=== PATIENT | male | born 1965 | race Caucasian/White ===

== ENCOUNTER 2021-08-19 09:28 | Emergency (ER) | payer MEDICAID ==
[~2021-08-19] VITALS: Ht 177.8 cm; Wt 86.2 kg
[2021-08-19 09:28] VITALS: BP_SYST 152
[2021-08-19] MEDS ORDERED: NACL 0.9% 1,000 ML IV ONE (09:45)
[2021-08-19] MEDS ORDERED: ONDANSETRON HCL 4 MG/2 ML VIAL IVP ONE (09:45)
[2021-08-19 10:13] LABS: BASOPHILS # (AUTO) 0.1 K/uL (0.0-0.2); BASOPHILS % (AUTO) 0.4 % (0.0-2.0); EOSINOPHILS % (AUTO) 0.1 % (0.0-4.0); HEMATOCRIT 50.9 % (36-54); HEMOGLOBIN 17.7 g/dL (14.0-18.0); LYMPHOCYTES % (AUTO) 18.9 % (20.5-51.5); MEAN CORPUSCULAR HEMOGLOBIN 32 pg (27-31); MEAN CORPUSCULAR HGB CONC 35 % (32-36); MEAN CORPUSCULAR VOLUME 90 fL (79.0-98.0); MONOCYTES # (AUTO) 2.1 K/uL (0.0-1.0); MONOCYTES % (AUTO) 13.7 % (1.7-9.3); NEUTROPHILS # (AUTO) 10.5 K/uL (1.8-7.7); NEUTROPHILS % (AUTO) 66.9 % (40.0-70.0); PLATELET COUNT (AUTO) 321 K/uL (130-430); RED BLOOD CELL COUNT(AUTO) 5.63 MIL/uL (4.2-6.2); RED CELL DISTRIBUTION WIDTH 13.1 % (9.0-15.0); WHITE BLOOD COUNT (AUTO) 15.6 K/uL (4.8-10.8)
[2021-08-19 10:23] LABS: CREATININE 1.21 mg/dL (0.55-1.30); POTASSIUM 3.4 mmol/L (3.5-5.1)
[2021-08-19 10:27] LABS: C-REACTIVE PROTEIN QUANT 0.4 mg/dL (0-0.5)
[2021-08-19 10:32] LABS: INR 1.1 (0.80-1.20)
[2021-08-19] MEDS ORDERED: ONDA-8 TL (11:12)
[2021-08-19] MEDS ORDERED: HYDR-3917 PO (11:12)
[2021-08-19] MEDS ORDERED: IBUP-1971 PO (11:12)
[2021-08-19 11:53] VITALS: BP_SYST 173
== END 2021-08-19 11:52 | disposition home or self-care (01) ==
LOC: SED 09:28
DX: K80.50 Calculus of bile duct without cholangitis or cholecystitis without obstruction (principal); F12.90 Cannabis use, unspecified, uncomplicated; Z79.899 Other long term (current) drug therapy
CPT/HCPCS: 36415; 74176; 76376; 80053; 82150; 83605; 83690; 84484; 85025; 85610; 85730; 86140; 96361; 96374; 99284; J2405; J7030

== ENCOUNTER 2022-02-10 19:22 | Inpatient (IN) | payer MEDICAID ==
[~2022-02-10] VITALS: Ht 177.8 cm; Wt 91.2 kg
[~2022-02-10 19:22] MED LIST: HYDR-3917 PO; IBUP-1971 PO; ONDA-8 TL
[2022-02-10 19:29] VITALS: BP_SYST 159
--- NOTE | 2022-02-10 19:29 | NUR ---
Patient to ER bed 02 to gown for evaluation. Side rails up. Report given to ADRIANA Palma
--- NOTE | 2022-02-10 19:35 | NUR ---
Pt admits to having difficulty finding words to express himself. No slurred speech noted at this time. Pt noted difficulty at finding words to express himself 2 days ago.
[2022-02-10 20:02] LABS: BASOPHILS # (AUTO) 0.1 K/uL (0.0-0.2); BASOPHILS % (AUTO) 0.8 % (0.0-2.0); EOSINOPHILS # (AUTO) 0.2 K/uL (0.0-0.4); EOSINOPHILS % (AUTO) 2.5 % (0.0-4.0); HEMATOCRIT 39.2 % (36-54); HEMOGLOBIN 13.8 g/dL (14.0-18.0); LYMPHOCYTES # (AUTO) 2.7 K/uL (1.0-5.5); LYMPHOCYTES % (AUTO) 33.3 % (20.5-51.5); MEAN CORPUSCULAR HEMOGLOBIN 32 pg (27-31); MEAN CORPUSCULAR HGB CONC 35 % (32-36); MEAN CORPUSCULAR VOLUME 90 fL (79.0-98.0); MONOCYTES # (AUTO) 0.7 K/uL (0.0-1.0); MONOCYTES % (AUTO) 8.8 % (1.7-9.3); NEUTROPHILS # (AUTO) 4.4 K/uL (1.8-7.7); NEUTROPHILS % (AUTO) 54.6 % (40.0-70.0); PLATELET COUNT (AUTO) 223 K/uL (130-430); RED BLOOD CELL COUNT(AUTO) 4.36 MIL/uL (4.2-6.2); RED CELL DISTRIBUTION WIDTH 14.4 % (9.0-15.0); WHITE BLOOD COUNT (AUTO) 8.1 K/uL (4.8-10.8)
[2022-02-10 20:09] LABS: ANION GAP 6 (5-15); CALCIUM 9.1 mg/dL (8.4-11.0); CHLORIDE 106 mmol/L (98-107); CREATININE 0.94 mg/dL (0.55-1.30); GLUCOSE 100 mg/dL (70-99); POTASSIUM 3.6 mmol/L (3.5-5.1); SODIUM SERUM 139 mmol/L (136-145); UREA NITROGEN, BLOOD 13 mg/dL (8-21)
[2022-02-10 20:10] LABS: GFR AFRICAN AMERICAN 108 mL/min (>90)
[2022-02-10 20:11] LABS: PROTHROMBIN TIME 10.5 SECS (9.5-12.5)
[2022-02-10] MEDS ORDERED: IOHEXOL 350 mgI/mL, 150 ML INFUS..BTL IV ONE (20:12)
[2022-02-10 20:18] LABS: ALANINE AMINOTRANSFERASE 21 U/L (12-78); ALBUMIN 3.3 g/dL (3.4-4.8); ASPARTATE AMINOTRANSFERASE 20 U/L (10-37); TOTAL BILIRUBIN < 0.1 mg/dL (0.0-1.0)
--- NOTE | 2022-02-10 20:55 | NUR ---
Pt off to CTA at this time.
[2022-02-10] MEDS ORDERED: ASPIRIN 325 MG TABLET PO ONE (21:45)
[2022-02-10] MEDS ORDERED: ALBUTEROL SULFATE 0.083% 2.5 MG/3 ML VIAL.NEB INH PRN (22:45)
[2022-02-10] MEDS ORDERED: ACETAMINOPHEN 325 MG TABLET PO PRN (22:45)
--- NOTE | 2022-02-10 23:45 | NUR ---
Patient will be admitted to care of Dr. Egan. Admitted to Tele unit. Will go to room 130-B. Belongings list completed. Complete and up to date summary report printed. SBAR report to be given at bedside with opportunity for questions.
--- NOTE | 2022-02-10 23:55 | NUR ---
ADMIT NOTE Received pt from ER to with a diagnosis of CVA . Admission process initiated. patient oriented to pain management, safety and call light-teach back done.
[2022-02-11] MEDS ORDERED: FLU VACC QS2021-22(6MOS UP)/PF 0.5 ML/SYR SYRINGE I.M. PRN (00:45)
[2022-02-11 01:42] VITALS: BP_SYST 157
[2022-02-11 04:00] VITALS: BP_SYST 153
[2022-02-11 06:41] LABS: BASOPHILS % (AUTO) 0.7 % (0.0-2.0); EOSINOPHILS # (AUTO) 0.1 K/uL (0.0-0.4); EOSINOPHILS % (AUTO) 2.1 % (0.0-4.0); HEMATOCRIT 40.6 % (36-54); LYMPHOCYTES # (AUTO) 2.1 K/uL (1.0-5.5); LYMPHOCYTES % (AUTO) 29.3 % (20.5-51.5); MEAN CORPUSCULAR HEMOGLOBIN 31 pg (27-31); MEAN CORPUSCULAR HGB CONC 35 % (32-36); MEAN CORPUSCULAR VOLUME 91 fL (79.0-98.0); MONOCYTES # (AUTO) 0.6 K/uL (0.0-1.0); MONOCYTES % (AUTO) 7.9 % (1.7-9.3); NEUTROPHILS # (AUTO) 4.2 K/uL (1.8-7.7); PLATELET COUNT (AUTO) 229 K/uL (130-430); RED BLOOD CELL COUNT(AUTO) 4.48 MIL/uL (4.2-6.2); RED CELL DISTRIBUTION WIDTH 14.9 % (9.0-15.0); WHITE BLOOD COUNT (AUTO) 7.1 K/uL (4.8-10.8)
[2022-02-11 06:48] LABS: ALBUMIN 3.3 g/dL (3.4-4.8); CALCIUM 8.8 mg/dL (8.4-11.0); CREATININE 0.7 mg/dL (0.55-1.30); POTASSIUM 3.5 mmol/L (3.5-5.1)
[2022-02-11] MEDS ORDERED: NALOXONE HCL 0.4 MG/ML AMP (NARCAN) IVP PRN ×2 (07:30)
[2022-02-11] MEDS ORDERED: MUPIROCIN 2% TOPICAL OINTMENT 22 GM NS PRN (07:30)
[2022-02-11] MEDS ORDERED: ACETAMINOPHEN 325 MG TABLET PO PRN ×2 (07:30→08:45)
[2022-02-11] MEDS ORDERED: DOCUSATE SODIUM 100 MG CAPSULE PO PRN (07:30)
[2022-02-11] MEDS ORDERED: MORPHINE 2 MG/ML INJ. SYRINGE IVP PRN ×2 (07:30)
[2022-02-11] MEDS ORDERED: ZOLPIDEM TARTRATE 5 MG TABLET PO PRN (07:30)
[2022-02-11] MEDS ORDERED: MAGNESIUM SULFATE 50 ML IV PRN (07:30)
[2022-02-11] MEDS ORDERED: ONDANSETRON HCL 4 MG/2 ML VIAL IVP PRN (07:30)
[2022-02-11] MEDS ORDERED: POTASSIUM CHLORIDE 20 MEQ TAB.PRT.SR PO PRN (07:30)
[2022-02-11] MEDS ORDERED: LORazepam 2 MG/ML VIAL IVP PRN (07:30)
[2022-02-11 07:33] LABS: TOTAL BILIRUBIN 0.4 mg/dL (0.0-1.0)
[2022-02-11 08:00] VITALS: BP_SYST 153
[2022-02-11 09:19] LABS: CHOLESTEROL 157 mg/dL (<200); HDL CHOLESTEROL 44 mg/dL (>45); LDL CHOLESTEROL 92 mg/dL (<100); TRIGLYCERIDES 77 mg/dL (30-150)
--- NOTE | 2022-02-11 09:23 | NUR ---
CONSULTATION: REASON FOR CONSULT: CVA CONSULTING PHYSICIAN: SHELBY RYAN ORDERED BY: ADRIANA [phone] DR RYAN IS AWARE OF THE CONSULT
[2022-02-11] MEDS: ASPIRIN 325 MG TABLET PO SCH (09:25)
--- NOTE | 2022-02-11 19:20 | NUR ---
ST EVALUATION COMPLETED. PT AND INSTRUCTED IN ACTIVITIES FOR LANGUAGE STIMULATION AND ACTIVITIES TO ENCOURAGE COGNITIVE SKILL BUILDING. OUTPATIENT ST TX RECOMMENDED FOR EXPRESSIVE LANGUAGE AND COGNITIVE SKILLS DEVELOPMENT.
--- NOTE | 2022-02-11 19:30 | NUR ---
RECEIVED REPORT FROM OUTGOING NURSE. PT CALM IN BED, NO S/SX OF DISTRESS, PAIN OR DISCOMFORT.
[2022-02-11 20:00] VITALS: BP_SYST 174
--- NOTE | 2022-02-11 20:40 | NUR ---
ROUNDS: PT IN BED, SITTING UP, VERBALIZED HE WANTS TO GO HOME. TOOK HIS VITALS WHILE SITTING UP BP ELEVATED TO 180/103, T 97.8, P 69, R 18. ADVISED PT TO LIE DOWN. PT COMPLIANT.
--- NOTE | 2022-02-11 21:10 | NUR ---
PT STILL IN BED, REQUESTS WHEN HE CAN GO HOME. REPEAT HIS VITALS MEASUREMENT BP 174/86, P 59, T 98.1, O2SAT 96% PAGED MD DR MALONEY , WHO GAVE A TO TO START PT WITH 20MG LISINOPRIL, PO BID STARTING TONIGHT. ORDER NOTED AND CARRIED OUT.
[2022-02-12] MEDS: lisinopriL 20 MG TABLET PO SCH ×2 (00:38→10:08)
[2022-02-12 01:30] VITALS: BP_SYST 174
[2022-02-12 01:47] VITALS: BP_SYST 174
--- NOTE | 2022-02-12 06:23 | NUR ---
ROUNDS: VITALS MEASURED S/P GIVING HTN MEDS, BP 164/91, R 76, T 97.8, O2SAT 99%. PT IN GOOD SPIRIT, VERBALIZED HE FEELS BETTER. END OF SHIFT REPORT TO BE GIVEN TO INCOMING RN.
[2022-02-12 07:10] LABS: BASOPHILS % (AUTO) 0.6 % (0.0-2.0); EOSINOPHILS # (AUTO) 0.1 K/uL (0.0-0.4); EOSINOPHILS % (AUTO) 1.6 % (0.0-4.0); HEMATOCRIT 43.6 % (36-54); LYMPHOCYTES # (AUTO) 1.9 K/uL (1.0-5.5); LYMPHOCYTES % (AUTO) 22.7 % (20.5-51.5); MEAN CORPUSCULAR HEMOGLOBIN 31 pg (27-31); MEAN CORPUSCULAR HGB CONC 34 % (32-36); MEAN CORPUSCULAR VOLUME 91 fL (79.0-98.0); MONOCYTES # (AUTO) 0.8 K/uL (0.0-1.0); MONOCYTES % (AUTO) 9.4 % (1.7-9.3); NEUTROPHILS # (AUTO) 5.6 K/uL (1.8-7.7); NEUTROPHILS % (AUTO) 65.7 % (40.0-70.0); PLATELET COUNT (AUTO) 245 K/uL (130-430); RED BLOOD CELL COUNT(AUTO) 4.82 MIL/uL (4.2-6.2); RED CELL DISTRIBUTION WIDTH 14.6 % (9.0-15.0); WHITE BLOOD COUNT (AUTO) 8.6 K/uL (4.8-10.8)
[2022-02-12 07:11] LABS: CALCIUM 9.2 mg/dL (8.4-11.0); CREATININE 0.69 mg/dL (0.55-1.30); POTASSIUM 3.8 mmol/L (3.5-5.1)
[2022-02-12] MEDS ORDERED: LISI20TA30 PO (07:46)
[2022-02-12] MEDS ORDERED: ASPI-1393 PO (07:46)
[2022-02-12 08:00] VITALS: BP_SYST 161
[2022-02-12] MEDS: ASPIRIN 325 MG TABLET PO SCH (10:09)
[2022-02-12 13:49] VITALS: BP_SYST 158
--- NOTE | 2022-02-12 14:03 | NUR ---
Bone Density Technician KATH Opal responded to a request for social work support with excuse letter for work. MICROFICHE DUPLICATOR met with patient and his at bedside. Patient declined needing assistance as they had all needed documentation at this time. MICROFICHE DUPLICATOR will continue to be available as needed.
--- NOTE | 2022-02-12 14:20 | NUR ---
Dietitian Recommendations Continue cardiac diet. Consider ONS if PO intake decreases. Please refer to Nutrition Assessment for details. Signed: 02/12/22 at 1421 by Deirdre TIRADO <Co-Signature Required> Co-Signed: 02/12/22 at [address] Addendum: 02/12/22 at 1421 by Deirdre TIRADO Amended: Links added.
== END 2022-02-12 14:25 | disposition home or self-care (01) | DRG 45 ==
LOC: SED 19:22 → STU 22:36
PROVIDERS: ADMIT Internal Medicine Hospice and Palliative Medicine; ATTEND Internal Medicine Hospice and Palliative Medicine
DX: I63.89 Other cerebral infarction (principal); H53.461 Homonymous bilateral field defects, right side; F17.210 Nicotine dependence, cigarettes, uncomplicated; I10 Essential (primary) hypertension; R48.0 Dyslexia and alexia; Z20.822 Contact with and (suspected) exposure to COVID-19; E78.5 Hyperlipidemia, unspecified; Z79.899 Other long term (current) drug therapy
CPT/HCPCS: 36415; 70450-TC; 70496; 70498; 70551; 71045; 76376; 80048; 80053; 80061; 82962; 83036; 83735; 84484; 85025; 85610-TC; 85730-TC; 92523; 93005; 93306; 99285; G0378; Q9967

== ENCOUNTER 2023-09-12 06:42 | Observation (INO) | payer MEDICAID ==
[~2023-09-12] VITALS: Ht 175.3 cm; Wt 83.5 kg
[~2023-09-12 06:42] MED LIST changes: +ASPI-1393 PO; +LISI20TA30 PO
[2023-09-12 06:52] VITALS: BP_SYST 123; PULSE 101; RESP 17; TEMP 98.1; O2SAT 97
[2023-09-12] MEDS ORDERED: NACL 0.9% 1,000 ML IV ONE ×2 (07:15→08:15)
[2023-09-12] MEDS ORDERED: ONDANSETRON HCL 4 MG/2 ML VIAL IVP ONE (07:15)
[2023-09-12 07:20] LABS: BASOPHILS % (AUTO) 0.2 % (0.0-2.0); EOSINOPHILS % (AUTO) 0.1 % (0.0-4.0); HEMATOCRIT 51.1 % (36-54); HEMOGLOBIN 17.1 g/dL (14.0-18.0); LYMPHOCYTES # (AUTO) 1.2 K/uL (1.0-5.5); MEAN CORPUSCULAR HEMOGLOBIN 30 pg (27-31); MEAN CORPUSCULAR HGB CONC 33 % (32-36); MEAN CORPUSCULAR VOLUME 90 fL (79.0-98.0); MONOCYTES % (AUTO) 11.3 % (1.7-9.3); NEUTROPHILS # (AUTO) 14.2 K/uL (1.8-7.7); NEUTROPHILS % (AUTO) 81.4 % (40.0-70.0); PLATELET COUNT (AUTO) 354 K/uL (130-430); RED BLOOD CELL COUNT(AUTO) 5.67 MIL/uL (4.2-6.2); RED CELL DISTRIBUTION WIDTH 14.5 % (9.0-15.0); WHITE BLOOD COUNT (AUTO) 17.4 K/uL (4.8-10.8)
[2023-09-12 07:33] LABS: CREATININE 2.98 mg/dL (0.55-1.30); POTASSIUM 3.1 mmol/L (3.5-5.1)
[2023-09-12 07:37] LABS: ALBUMIN 4.4 g/dL (3.4-4.8); BILIRUBIN,DIRECT 0.2 mg/dL (0.0-0.3); TOTAL BILIRUBIN 0.6 mg/dL (0.0-1.0); TOTAL PROTEIN, SERUM 8.3 g/dL (6.4-8.3)
[2023-09-12] MEDS ORDERED: POTASSIUM CHLORIDE 20 MEQ TABLET.ER PO ONE (08:15)
[2023-09-12 09:19] LABS: BILIRUBIN,URINE NEGATIVE (NEGATIVE); BLOOD, URINE 1+ (NEGATIVE); CLARITY/URINE CLEAR (CLEAR); COLOR,URINE YELLOW (YELLOW); GLUCOSE,URINE NEGATIVE (NEGATIVE); KETONES,URINE NEGATIVE (NEGATIVE); LEUKOCYTE ESTERASE ,URINE NEGATIVE (NEGATIVE); NITRITE, URINE NEGATIVE (NEGATIVE); PROTEIN URINE TRACE (NEGATIVE); UROBILINOGEN,URINE 0.2 (0.2-1.0)
[2023-09-12] MEDS ORDERED: ONDANSETRON HCL 4 MG/2 ML VIAL IVP PRN (09:30)
[2023-09-12] MEDS ORDERED: HYDROcodone/ACETAMIN 5-325 MG TAB (NORCO/ VICODIN) PO PRN (09:30)
[2023-09-12 09:31] LABS: BACTERIA,URINE RARE /HPF (None Seen); WBC,URINE 0-3 /HPF (0-3)
[2023-09-12] MEDS: NACL 0.9% 1,000 ML IV SCH ×2 (10:43→21:37)
[2023-09-12 15:57] VITALS: BP_SYST 133; PULSE 73; RESP 16; TEMP 98.2; O2SAT 98
[2023-09-12 16:00] VITALS: BP_SYST 133; PULSE 73; RESP 16; TEMP 98.2; O2SAT 98
[2023-09-12] MEDS ORDERED: ZOLPIDEM TARTRATE 5 MG TABLET PO PRN (18:30)
[2023-09-12] MEDS ORDERED: cloNIDine HCL 0.1 MG TABLET PO PRN (18:45)
[2023-09-12] MEDS: amLODIPine BESYLATE 5 MG TABLET PO SCH (18:45)
[2023-09-12 20:00] VITALS: BP_SYST 126; PULSE 72; RESP 16; TEMP 99.1; O2SAT 95
[2023-09-13 00:21] VITALS: BP_SYST 135; PULSE 89; RESP 17; TEMP 97.8; O2SAT 97
[2023-09-13 07:39] LABS: BASOPHILS % (AUTO) 0.2 % (0.0-2.0); EOSINOPHILS % (AUTO) 0.1 % (0.0-4.0); HEMATOCRIT 48.4 % (36-54); HEMOGLOBIN 16.1 g/dL (14.0-18.0); LYMPHOCYTES # (AUTO) 1.9 K/uL (1.0-5.5); LYMPHOCYTES % (AUTO) 13.4 % (20.5-51.5); MEAN CORPUSCULAR HEMOGLOBIN 31 pg (27-31); MEAN CORPUSCULAR HGB CONC 33 % (32-36); MEAN CORPUSCULAR VOLUME 92 fL (79.0-98.0); MONOCYTES % (AUTO) 14.4 % (1.7-9.3); NEUTROPHILS % (AUTO) 71.9 % (40.0-70.0); PLATELET COUNT (AUTO) 252 K/uL (130-430); RED BLOOD CELL COUNT(AUTO) 5.27 MIL/uL (4.2-6.2); RED CELL DISTRIBUTION WIDTH 14.3 % (9.0-15.0); WHITE BLOOD COUNT (AUTO) 13.8 K/uL (4.8-10.8)
[2023-09-13 07:50] LABS: ALBUMIN 3.5 g/dL (3.4-4.8); CALCIUM 9.2 mg/dL (8.4-11.0); CREATININE 0.86 mg/dL (0.55-1.30); PHOSPHORUS 2.2 mg/dL (2.7-4.5); POTASSIUM 3.6 mmol/L (3.5-5.1); TOTAL BILIRUBIN 0.6 mg/dL (0.0-1.0)
[2023-09-13 08:30] VITALS: BP_SYST 141; PULSE 68; RESP 16; TEMP 97.2; O2SAT 99
[2023-09-13 08:45] VITALS: O2SAT 100
[2023-09-13] MEDS ORDERED: ASPIRIN 81 MG TABLET(ECOTRIN) PO SCH (09:00)
[2023-09-13] MEDS ORDERED: lisinopriL 20 MG TABLET PO SCH (09:00)
[2023-09-13] MEDS: NACL 0.9% 1,000 ML IV SCH (09:24)
[2023-09-13] MEDS: amLODIPine BESYLATE 5 MG TABLET PO SCH (09:25)
[2023-09-13 13:48] LABS: HEMATOCRIT 46.1 % (36-54); HEMOGLOBIN 15.5 g/dL (14.0-18.0); MEAN CORPUSCULAR HEMOGLOBIN 31 pg (27-31); MEAN CORPUSCULAR HGB CONC 34 % (32-36); MEAN CORPUSCULAR VOLUME 91 fL (79.0-98.0); PLATELET COUNT (AUTO) 245 K/uL (130-430); RED BLOOD CELL COUNT(AUTO) 5.07 MIL/uL (4.2-6.2); RED CELL DISTRIBUTION WIDTH 14.2 % (9.0-15.0); WHITE BLOOD COUNT (AUTO) 14.5 K/uL (4.8-10.8)
[2023-09-13 14:41] LABS: BASOPHILS % (MANUAL) 0 % (0-2); EOSINOPHILS % (MANUAL) 0 % (0-7); LYMPHOCYTES % (MANUAL) 19 % (20-46); MONOCYTES % (MANUAL) 15 % (0-11); PLATELET ESTIMATE ADEQUATE (ADEQUATE)
[2023-09-13 16:00] VITALS: BP_SYST 145; PULSE 76; RESP 18; TEMP 97.7; O2SAT 95
[2023-09-13 16:41] VITALS: BP_SYST 145; PULSE 76; RESP 18; TEMP 97.7; O2SAT 95
== END 2023-09-13 16:00 | disposition home or self-care (01) ==
LOC: SED 06:42 → INTOOBSV 09:21 → SMU 09:21
PROVIDERS: ADMIT Family Medicine; ATTEND Family Medicine
DX: R11.2 Nausea with vomiting, unspecified (principal); R10.13 Epigastric pain; I12.9 Hypertensive chronic kidney disease with stage 1 through stage 4 chronic kidney disease, or unspecified chronic kidney disease; N18.4 Chronic kidney disease, stage 4 (severe); N17.9 Acute kidney failure, unspecified; D72.829 Elevated white blood cell count, unspecified; E87.1 Hypo-osmolality and hyponatremia; E87.6 Hypokalemia; K80.20 Calculus of gallbladder without cholecystitis without obstruction; F17.200 Nicotine dependence, unspecified, uncomplicated; E87.8 Other disorders of electrolyte and fluid balance, not elsewhere classified; Z86.73 Personal history of transient ischemic attack (TIA), and cerebral infarction without residual deficits; Z79.899 Other long term (current) drug therapy
CPT/HCPCS: 96361 ×2; 96374; 80076; 80048; 81000; 81001; 83690; 85025 ×2; 36415 ×2; 76376; 74176; 99285; 85027; 80053; 83735; 84100; 71045; J2405; G0378 ×2; 81015; 85007